=== PATIENT | female | born 1975 | race Caucasian/White ===

== ENCOUNTER 2018-05-30 18:03 | Emergency (ER) | payer OTHER, SELFPAY ==
[2018-05-30 18:08] VITALS: BP 135/90; PULSE 110; RESP 22; TEMP 36.9; O2SAT 94; BMI 28.3
--- NOTE | 2018-05-30 18:42 | ED.ASTHMA ---
HPI - Asthma General Chief Complaint: Asthma Stated Complaint: ASTHMA ATTACK Time Seen by Provider: 05/30/18 18:34 Source: patient Mode of arrival: ambulatory Limitations: no limitations History of Present Illness HPI Narrative: Patient is a 42-year-old female who presents with all asthma exacerbation. She has a history of environmental asthma. She is visiting from [place] and staying with her brother who has dogs. She has stayed with him before and never had this kind of reaction. She is feeling better now that she is out of the environment. She typically gets a treatment and some prednisone which usually helps. MD complaint: asthma attack Onset (ago): minute(s) Related Data Home Medications Medication Instructions Recorded Confirmed albuterol sulfate [ProAir HFA] 2 puff INHALATION Q4-6H PRN 05/30/18 05/30/18 loratadine [Claritin] 10 mg PO DAILY 05/30/18 05/30/18 Previous Rx's Medication Instructions Recorded albuterol sulfate [Ventolin HFA] 1 puff INHALATION Q4-6H PRN #8.5 05/30/18 gram prednisone 40 mg PO DAILY #8 tab 05/30/18 Allergies Allergy/AdvReac Type Severity Reaction Status Date / Time amoxicillin [From Augmentin] Allergy Intermediate Rash Verified 05/30/18 18:25 clavulanic acid Allergy Intermediate Rash Verified 05/30/18 18:25 [From Augmentin] Review of Systems Review of Systems GENERAL: Denies chills, fatigue, malaise, fever, sweats, travel HEENT: Denies sinus pain, ear pain, sore throat, difficulty swallowing, neck pain RESPIRATORY: See HPI CARDIOVASCULAR: Denies chest pain, palpitations, orthopnea, edema GASTROINTESTINAL: Denies nausea, vomiting, abdominal pain, diarrhea, constipation, melena. : Denies dysuria, frequency, incontinence, hematuria, urinary retention, flank pain. MUSCULOSKELETAL: Denies weakness, joint pain, or bony pain SKIN: No rash, no erythema, no pruritus NEUROLOGIC: Denies weakness, dizziness, headache, numbness, change in speech, confusion PSYCHIATRIC: No concerning psychosocial issues. 12 point review of systems is negative except for those stated above and HPI Exam Initial Vital Signs Initial Vital Signs: Vital Signs Temperature 98.5 F 05/30/18 18:08 Pulse Rate 110 H 05/30/18 18:08 Respiratory Rate 22 05/30/18 18:08 Blood Pressure 135/90 H 05/30/18 18:08 Pulse Oximetry 94 05/30/18 18:08 GENERAL: Well-appearing, well-nourished and in no acute distress. HEENT: Head atraumatic,EOMI, pupils reactive CARDIOVASCULAR: Regular rate and rhythm without murmurs, rubs or gallops. RESPIRATORY: Slight expiratory wheezing speaking in full sentences no acute respiratory distress ABDOMEN: Soft, nontender. Normoactive bowel sounds all 4 quadrants. No guarding or rebound. EXTREMITIES: Normal range of motion, no clubbing or edema. Neurovascularly intact NEUROLOGICAL: Alert and oriented x4.Normal gait and speech. SKIN: Warm, dry, no laceration, no petechiae, no rashes or lesions. [facility] Medical History Asthma (Acute) Environmental allergies (Acute) Social History Smoking Status: Never smoker Course Orders Ordered: ED Orders 05/30/18 18:30 Consult to Respiratory Therapy Evaluate & Treat Discontinued Medications Albuterol/Ipratropium (Duoneb) 3 ml INH NOW ONE Stop: 05/30/18 18:31 Last Admin: 05/30/18 18:51 Dose: 3 ml Prednisone (Deltasone) 40 mg PO NOW ONE Stop: 05/30/18 19:19 Last Admin: 05/30/18 19:47 Dose: 40 mg Vital Signs - 8 hr 05/30/18 18:08 05/30/18 18:52 05/30/18 19:48 Temperature 98.5 F 97.8 F Pulse Rate 110 H 102 H Respiratory Rate 22 Blood Pressure 135/90 H 141/98 H Pulse Oximetry 94 97 97 MDM - Asthma MDM Narrative Medical decision making narrative: The patient was already feeling better when she got to the emergency department. She has no prior history of intubations. Feeling even better after albuterol. She is given spacer a new prescription for albuterol along with prednisone. Discharge Plan Departure Patient Disposition: Home, Self-Care Clinical Impression: Asthma with acute exacerbation Discharge Date/Time: 05/30/18 19:50 Interventions: ED Discharge Assessment Last Done: 05/30/18 19:48 Instructions: Asthma -- Adult Activity Restrictions/Additional Instructions: *You have been diagnosed with asthma exacerbation *What to do: Try to avoid triggers *Continue to take medications as directed-prescriptions have been faxed to [facility] -prednisone 40 mg once a day for 5 days (first dose given in ED) -albuterol inhaler 1-2 puffs every 4 hr if needed for wheezing or shortness of breath *Follow up with your primary care provider in 2-3 days *Return to ER if you should have worsening shortness of breath, do multi breathing or any new, worsening or concerning symptoms Prescriptions: New prednisone 20 mg tablet 40 mg PO DAILY Qty: 8 RF: 0 albuterol sulfate [Ventolin HFA] 90 mcg/actuation HFA aerosol inhaler 1 puff INHALATION Q4-6H PRN (Reason: shortness of breath or wheezing) Qty: 8.5 RF: 0 No Action albuterol sulfate [ProAir HFA] 90 mcg/actuation Hfa Aerosol Inhaler 2 puff INHALATION Q4-6H PRN (Reason: Wheezing) RF: 0 loratadine [Claritin] 10 mg Tablet 10 mg PO DAILY RF: 0
[2018-05-30] MEDS: ALBUTEROL/IPRATROPIUM 3 ML AMPUL INH (18:51)
[2018-05-30 18:52] VITALS: O2SAT 97
--- NOTE | 2018-05-30 19:37 | PC.NURSE ---
report from Araceli Abarca; called to RT for a spacer/spacer education. RT at right now. D/c to follow
[2018-05-30] MEDS: predniSONE 20 MG TABLET 40 MG PO (19:47)
[2018-05-30 19:48] VITALS: BP 141/98; PULSE 102; TEMP 36.6; O2SAT 97
== END 2018-05-30 19:50 | disposition home or self-care (01) ==
PROVIDERS: Emergency Provider Emergency Medicine
DX: J45.901 Unspecified asthma with (acute) exacerbation (principal)
CPT/HCPCS: 94150; 94640; 99282; 99283